=== PATIENT | female | born 1960 | race African-American/Black ===

== ENCOUNTER 2018-02-09 05:27 | Day surgery (SDC) | payer OTHER ==
[~2018-02-09] VITALS: Ht 165.1 cm; Wt 79.4 kg
--- NOTE | ~2018-02-09 | EKG ---
[address] [address] ELECTROCARDIOGRAM REPORT Name: RAH ABARCA Room #: 150-1 [facility].#: [id number] Admission: 02/09/18 Attend Phys: Yoandy Dowell DPM Discharge: Date of : 56 Report #: [id number] THIS REPORT FOR: //name// [facility] Test Date: 2018-02-09 Test Time: 08:25:09 Pat Name: RAH ABARCA Department: Room: 150 Gender: F [employer] Records Management Officer: ZOHAIB : 1960 Requested By: Yoandy Dowell Order Number: [id number] MD: Mumtaz Orourke Measurements Intervals [place] Rate: 80 P: 69 VA: 159 QRS: 10 QRSD: 82 T: 16 QT: 417 QTc: 482 Interpretive Statements Sinus rhythm Borderline T wave abnormalities Compared to ECG 12/21/2004 09:32:29 Ventricular premature complex(es) no longer present Atrial premature complex(es) no longer present Electronically Signed On 02-09-2018 8:40:46 CDT by Mumtaz Orourke [email or web address] <ELECTRONICALLY SIGNED> By: Mumtaz Orourke MD, [facility] 02/09/1840 4 4 Mumtaz Orourke MD, [facility] /EPI
[~2018-02-09 05:27] MED LIST: ALEVE220 MG PO; BACTRIM DS TAB1 EACH PO; CLARITIN10 MG; CYCLOBENZAPRINE5 MG PO; CYMBALTA30 MG PO; LIPOIC ACID25 GM PO; LO LOESTRIN FE1 EACH; MULTIVITAMINS1 EAC7; NAPROSYN500 MG PO; NEXIUM40 MG PO; NORCO 5-325 TA1 EACH PO
[2018-02-09 09:26] VITALS: BP 150/97
== END 2018-02-09 11:45 | disposition home or self-care (01) ==
LOC: OR 05:27 → TBA 05:31 → OR 08:19
DX: M76.61 Achilles tendinitis, right leg (principal); M77.9 Enthesopathy, unspecified; K21.9 Gastro-esophageal reflux disease without esophagitis; I47.1 Supraventricular tachycardia; Z98.890 Other specified postprocedural states
CPT/HCPCS: 50010; 50101; 50386; 57091; 62110; 62850; 70005

== ENCOUNTER → 2018-05-18 | Outpatient (CLI) | payer OTHER | LOC: ULTRA 14:52 | DX: M79.89 Other specified soft tissue disorders (principal); M79.661 Pain in right lower leg; I10 Essential (primary) hypertension ==